=== PATIENT | female | born 1955 | race Caucasian/White ===

== ENCOUNTER 2018-01-13 15:51 | Emergency (ER) | payer BC, OTHER ==
[2018-01-13 15:59] VITALS: RESP 18; O2SAT 100
[2018-01-13] MEDS ORDERED: Sodium Chloride 0.9% 1,000 ML IV SCH (17:00)
[2018-01-13 17:09] LABS: URINE BILIRUBIN NEGATIVE (NEGATIVE); URINE BLOOD NEGATIVE (NEGATIVE); URINE CLARITY Clear (Clear); URINE COLOR Colorless (YELLOW); URINE GLUCOSE (UA) NORMAL (Normal); URINE LEUKOCYTE ESTERASE NEG Leu/uL (Negative); URINE PROTEIN NEGATIVE (NEGATIVE); URINE UROBILINOGEN NORMAL mg/dL (0.2-1.0)
[2018-01-13] MEDS ORDERED: Sodium Chloride 0.9% 1,000 ML ONE (17:11)
[2018-01-13 17:14] LABS: BASO % 0.7 % (0.0-2.0); EOS # 0.1 K/uL (0.0-0.7); EOS % 1.4 % (0.0-4.0); HEMOGLOBIN 12.7 g/dL (11.0-16.0); LYMPH # 2.3 K/uL (1.0-4.3); LYMPH % 33.6 % (20.0-40.0); MEAN CELL VOLUME 84.7 fL (81.0-99.0); MEAN CORPUSCULAR HEMOGLOBIN 28.5 pg (27.0-31.0); MEAN CORPUSCULAR HGB CONC 33.7 g/dL (33.0-37.0); MEAN PLATELET VOLUME 8.8 fL (7.2-11.7); MONO # 0.4 K/uL (0.0-0.8); MONO % 5.2 % (0.0-10.0); NEUT # 4.1 K/uL (1.8-7.0); NEUT % 59.1 % (50.0-75.0); NRBC % 0.1 % (0.0-2.0); RBC 4.46 Mil/uL (3.80-5.20); RED CELL DISTRIBUTION WIDTH 13.6 % (11.5-14.5)
--- NOTE | 2018-01-13 17:25 | C.PDOC ---
History Of Present Illness 62 year old female with no significant medical history presents to the emergency department with complaints of a frontal and occipital headache associated with dizziness described as room-spinning since waking up on Monday. Patient reports nausea and multiple episodes of vomiting, with the last episode being a few days ago. Patient states that she has no prior history of head trauma, and she states that she feels as if she's tilting towards the left side when she walks. Patient denies abdominal pain, chest pain, or shortness of breath. Time Seen by Provider: 01/13/18 16:19 Chief Complaint (Nursing): Dizziness/Lightheaded History Per: Patient History/Exam Limitations: no limitations Onset/Duration Of Symptoms: Days (3) Current Symptoms Are (Timing): Still Present Activity At Onset Of Symptoms: Other (waking up) Possible Causative Factor(s): Vertigo Fall Associated With With Symptoms: No Past Medical History Reviewed: Historical Data, Nursing Documentation, Vital Signs Vital Signs: Last Vital Signs Temp 97.5 F L 01/13/18 18:45 Pulse 68 01/13/18 18:45 Resp 18 01/13/18 18:45 BP 131/75 01/13/18 18:45 Pulse Ox 100 01/15/18 07:41 - Medical History PMH: No Chronic Diseases Surgical History: No Surg Hx - [facility] Procedures CLOSURE SKIN & SUBCUTANEOUS NEC (09/04/14) TETANUS TOXOID ADMINIST (01/08/13) Family History: States: No Known Family Hx - Social History Hx Tobacco Use: No Hx Alcohol Use: No Hx Substance Use: No Review Of Systems Cardiovascular: Negative for: Chest Pain Respiratory: Negative for: Shortness of Breath Gastrointestinal: Positive for: Nausea, Vomiting. Negative for: Abdominal Pain Neurological: Positive for: Headache, Dizziness. Negative for: Seizures, Altered Mental Status Physical Exam - Physical Exam Appears: Non-toxic, No Acute Distress Skin: Warm, Dry, No Rash Head: Atraumatic, Normacephalic Eye(s): bilateral: Normal Inspection, PERRL, EOMI (few beats nystagmus to right) Ear(s): Bilateral: TM Obscured By Wax Nose: Normal Oral Mucosa: Moist Neck: Supple Chest: Symmetrical Cardiovascular: Rhythm Regular, No Murmur Respiratory: Normal Breath Sounds, No Rales, No Rhonchi, No Wheezing Gastrointestinal/Abdominal: Normal Exam, Soft, No Tenderness, No Guarding, No Rebound Extremity: Normal ROM, Other (no pronator drift) Extremity: Bilateral: Atraumatic, Normal Color And Temperature Neurological/Psych: Oriented x3, Normal Speech, Normal Cognition, Normal Cranial Nerves, No Cerebellar Signs, Normal Motor, Normal Sensation, Other ( finger-nose normal. simona intact) Gait: Steady ED Course And Treatment - Laboratory Results Result Diagrams: 01/13/18 17:10 01/13/18 17:10 ECG: Interpreted By Me, Viewed By Me ECG Rhythm: Sinus Rhythm (73bpm) ECG Interpretation: Abnormal Interpretation Of ECG: no acute st-t changes O2 Sat by Pulse Oximetry: 100 (RA) Pulse Ox Interpretation: Normal - CT Scan/US CT Head Other Rad Studies (CT/US): Read By Radiologist, Radiology Report Reviewed CT/US Interpretation: CT Scan. . . HEAD W/O CONTRAST Exam Date: 01/13/18. . This imaging exam was performed at [facility]. EXAM: CT Head Without Intravenous Contrast. . EXAM DATE/TIME: 4:50 PM. . CLINICAL HISTORY: 62 years old, female; Signs and symptoms ; Dizziness; Additional info: Dizzy. and headache. . TECHNIQUE: Axial computed tomography images of the head/brain without intravenous. contrast. All CT scans at this facility use one or more dose reduction. techniques, viz. : automated exposure control; ma/kV adjustment per patient size. (including targeted exams where dose is matched to indication; i.e. head); or. iterative reconstruction technique. . COMPARISON: There are no prior studies for comparison. . FINDINGS: Brain: See below. Ventricles: Ventricles are normal in size and configuration. There is no. midline shift. There are no intra-axial or extra-axial mass lesions or areas of. hemorrhage. There are no abnormal fluid collections. Fan-white differentiation. is maintained. Bones: Cranial vault is intact. Soft tissues: unremarkable. Sinuses: There is no acute sinusitis. Ears and mastoids: Middle ears and mastoids are unremarkable. Orbits: Orbital contents are unremarkable. . IMPRESSION: No acute intracranial abnormality Progress Note: Plan: CT Head w/o Contrast. EKG. CMP. Troponin. NaCl IV Fluids. Zofran 4mg IVP. Urinalysis Medical Decision Making Medical Decision Making: dizzy- plan: ekg head ct labs, zofran ivf 1835 pt feeling better, nausea and headache resolved after zofran and ivf. pt with normal labs and normal ekg. head ct neg. will give small dose meclizine. d /c with pmd/clinic and ent f/u. 1850 pt feeling well, sitting in chair, sts not dizzy when walking around. d/c home with meclizine and pmd. Disposition Counseled Patient/Family Regarding: Studies Performed, Diagnosis, Need For Followup, Rx Given - Disposition Referrals: Adam Coleman MD [Staff Provider] - Disposition: HOME/ ROUTINE Disposition Time: 18:53 Condition: IMPROVED Additional Instructions: Realice un seguimiento con allen mdico de atencin primaria (Dr. Wolf) lo antes posible; as marielos al Dr. Coleman (mdico de odo, nariz y garganta). [place] meclizina si es necesario para mareos. Deb medicamento puede marearlo, por lo que no debe manipular maquinaria, conducir ni usar herramientas. Vuelva a la marge de emergencias para cualquier empeoramiento de los sntomas.Please follow up with your primary care doctor (Dr Wolf) as soon as possible; as well as Dr Coleman (ear,nose, throat doctor). Take meclizine if needed for dizziness. This medicine may make you dizzy so no operating machinery, driving, using tools. REturn to ER for any worsening symptoms. 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 - Scribe Statement The provider has reviewed the documentation as recorded by the Scribe (Juan Antonio Foreman) All medical record entries made by the Scribe were at my direction and personally dictated by me. I have reviewed the chart and agree that the record accurately reflects my personal performance of the history, physical exam, medical decision making, and the department course for this patient. I have also personally directed, reviewed, and agree with the discharge instructions and disposition.
[2018-01-13 17:40] LABS: ALB/GLOB RATIO 1.1 (1.0-2.1); ALT/SGPT 28 U/L (9-52); AST/SGOT 26 U/L (14-36); BLOOD UREA NITROGEN 16 mg/dL (7-17); CALCIUM 8.7 mg/dl (8.6-10.4); GFR AFRICAN-AMERICAN > 60; GFR NON-AFRICAN AMERICAN > 60
--- NOTE | 2018-01-13 18:29 | CT ---
EXAM: CT Head Without Intravenous Contrast EXAM DATE/TIME: 01/13/2018 4:50 PM CLINICAL HISTORY: 62 years old, female; Signs and symptoms; Dizziness; Additional info: Dizzy and headache TECHNIQUE: Axial computed tomography images of the head/brain without intravenous contrast. All CT scans at this facility use one or more dose reduction techniques, viz.: automated exposure control; ma/kV adjustment per patient size (including targeted exams where dose is matched to indication; i.e. head); or iterative reconstruction technique. COMPARISON: There are no prior studies for comparison. FINDINGS: Brain: See below. Ventricles: Ventricles are normal in size and configuration. There is no midline shift. There are no intra-axial or extra-axial mass lesions or areas of hemorrhage. There are no abnormal fluid collections. Fan-white differentiation is maintained. Bones: Cranial vault is intact. Soft tissues: unremarkable Sinuses: There is no acute sinusitis. Ears and mastoids: Middle ears and mastoids are unremarkable Orbits: Orbital contents are unremarkable. IMPRESSION: No acute intracranial abnormality
[2018-01-13 18:46] VITALS: BP 131/75; PULSE 68; TEMP 97.5
== END 2018-01-13 19:19 | disposition home or self-care (01) ==
LOC: C.ER 15:51
DX: R42 Dizziness and giddiness (principal)
CPT/HCPCS: 70450; 80053; 81001; 84484; 85025; 96361; 96374; 99284; J2405; J7040